=== PATIENT | male | born 1950 ===

== ENCOUNTER → 2018-07-12 | Emergency (ER) | payer OTHER ==
[~2018-07-12] VITALS: Ht 167.6 cm; Wt 102.1 kg
[~2018-07-12] MED LIST: CATAFLAN; TAMS0.4C
== END | disposition designated cancer center or children's hospital (05) ==
LOC: ER 14:52
DX: N17.8 Other acute kidney failure (principal); N40.0 Benign prostatic hyperplasia without lower urinary tract symptoms; N13.39 Other hydronephrosis; K57.90 Diverticulosis of intestine, part unspecified, without perforation or abscess without bleeding